=== PATIENT | female | born 1960 | race Native Hawaiian/Other Pacific Islander ===

== ENCOUNTER 2017-09-04 18:00 | Emergency (ER) | payer MEDICAID ==
[2017-09-04 18:24] VITALS: RESP 16
[2017-09-04] MEDS ORDERED: MethylPREDNISolone 40 mg Vial ONE (19:25)
[2017-09-04] MEDS ORDERED: DiphenhydrAMINE 50 mg/ml Inj ONE (19:29)
[2017-09-04] MEDS ORDERED: Sodium Chloride 0.9% 1,000 ML ONE (19:29)
[2017-09-04] MEDS: DiphenhydrAMINE 50 mg/ml Inj IVP STA (19:31)
[2017-09-04] MEDS: Sodium Chloride 0.9% 1,000 ML IV ONE (19:31)
--- NOTE | 2017-09-04 20:03 | C.PDOC ---
History Of Present Illness 57 year old female presents to the ED for evaluation of allergic reaction which has been intermittent for the past week. Notes that she has been experiencing hives intermittently, but since last night she has been experiencing eye swelling prompting ED visit. She has been taking Benadryl intermittently, and her last dose was at 0600 today. She has a history of similar persistent urticaria since she was an adolescent. Patient notes she has been evaluated by an office professionals a few years ago, who told her that she is allergic to "everything but dogs." Patient believes her symptoms may be triggered secondary to a mouse in her apartment. Patient denies change in medication, exposure to new foods or detergents, difficulty breathing or difficulty swallowing. Patient has been hospitalized in the past for allergic reactions. Time Seen by Provider: 09/04/17 19:02 Chief Complaint (Nursing): Allergic Reaction History Per: Patient History/Exam Limitations: no limitations Onset/Duration Of Symptoms: Days (1 week), Intermittent Episodes Current Symptoms Are (Timing): Still Present Possible Cause: Unknown Associated Symptoms: Skin Rash Home/EMS Treatment: Benadryl Additional History Per: Patient Past Medical History Reviewed: Historical Data, Nursing Documentation, Vital Signs Vital Signs: Last Vital Signs Temp 97 F L 09/04/17 21:05 Pulse 71 09/04/17 21:05 Resp 16 09/04/17 21:05 BP 100/62 09/04/17 21:05 Pulse Ox 98 09/04/17 21:50 - Medical History PMH: Anxiety, Osteoporosis Surgical History: No Surg Hx Family History: States: Unknown Family Hx - Social History Hx Alcohol Use: Yes Hx Substance Use: No Review Of Systems ENT: Negative for: Throat Swelling Respiratory: Negative for: Shortness of Breath Skin: Positive for: Rash Physical Exam - Physical Exam Appears: Non-toxic, No Acute Distress Skin: Normal Color, Warm, Dry, No Other (urticaria ) Head: Atraumatic, Normacephalic, Swelling (bilateral, periorbital ) Eye(s): bilateral: PERRL, EOMI Nose: Normal Oral Mucosa: Moist Tongue: No Swelling Lips: No Swelling Throat: No Erythema, No Exudate, No Drooling Neck: Normal ROM, Supple Chest: Symmetrical, No Deformity, No Tenderness Cardiovascular: Rhythm Regular Respiratory: Normal Breath Sounds, No Rales, No Rhonchi, No Wheezing Gastrointestinal/Abdominal: Soft, No Tenderness Extremity: Normal ROM, Capillary Refill (less than 2 seconds ) Neurological/Psych: Oriented x3, Normal Speech, Normal Cognition ED Course And Treatment O2 Sat by Pulse Oximetry: 98 (on RA) Pulse Ox Interpretation: Normal Progress Note: PT treated with SOluMedrol and Benadryl. On re-evlauation, pt notes she feels better. Notes that the eye swelling has improved and itching has resolved. Patient is resting comfortably, tolerating PO, has no shortness of breath, has no intra-oral swelling, no stridor, no rash or pruritus. Patient was advised to avoid potential allergens, and to follow up with physician in 1- 2 days. Case discussed with Dr King, agreed upon plan and discharge. Disposition - Disposition Disposition: HOME/ ROUTINE Disposition Time: 20:01 Condition: STABLE Additional Instructions: Follow up with office professionals in 1-2 days. Avoid any potential allergens. Return to ER if symptoms persist or worsen. Prescriptions: DiphenhydrAMINE [Benadryl] 25 mg PO Q6 #20 cap Epinephrine HCl [Epipen Auto-Injector] 0.3 mg IM ONCE PRN #1 unit PRN Reason: Anaphylaxis predniSONE [Prednisone] 40 mg PO DAILY #8 tab Instructions: Hives (DC) Forms: [employer] (Peruvian) - Clinical Impression Clinical Impression: Allergic reaction - PA / MANAGER [employer] / Resident Statement MD/DO has reviewed & agrees with the documentation as recorded. - Scribe Statement The provider has reviewed the documentation as recorded by the Scribe (Lindsey Gomez) All medical record entries made by the Scribe were at my direction and personally dictated by me. I have reviewed the chart and agree that the record accurately reflects my personal performance of the history, physical exam, medical decision making, and the department course for this patient. I have also personally directed, reviewed, and agree with the discharge instructions and disposition.
[2017-09-04 21:06] VITALS: BP 100/62; PULSE 71; TEMP 97
[2017-09-04 21:44] VITALS: O2SAT 98
== END 2017-09-04 21:05 | disposition home or self-care (01) ==
LOC: C.ER 18:00
DX: T78.49XA Other allergy, initial encounter (principal); X58.XXXA Exposure to other specified factors, initial encounter
CPT/HCPCS: 96361; 96374; 96375; 99283; J1200; J2930; J7030